=== PATIENT | male | born 1975 | race Caucasian/White ===

== ENCOUNTER 2017-06-15 11:38 | Emergency (ER) | payer MEDICAID ==
[2017-06-15 11:52] VITALS: BP 119/78
[2017-06-15] MEDS ORDERED: LIDOCAINE 1% 2 ML VIAL ONE (12:51)
[2017-06-15] MEDS ORDERED: TETANUS/DIPHTHERIA/PERTUSSIS 0.5 ML SYRINGE IM ONE (12:54)
--- NOTE | 2017-06-15 12:57 | ED Physician Documentation ---
PD HPI UPPER EXT INJURY - Stated complaint Stated Complaint: L POINTER LAC - Chief complaint Chief Complaint: Ext Problem - History obtained from History obtained from: Patient, Family - History of Present Illness Location: Left, Finger (index) Type of injury: Laceration Where injury occurred: Home Timing - onset: Today Timing - duration: Minutes Timing - details: Abrupt onset, Still present Improved by: Rest, Immobilization Worsened by: Moving Associated symptoms: No: Weakness, Numbness, Tingling, Swelling Similar symptoms before: Diagnosis (laceration) Recently seen: Not recently seen - Additonal information Additional information: 42-year-old male cutting food with a knife sliced his left index finger. He does not recall when the last tetanus booster he had was. Review of Systems Constitutional: denies: Fever Respiratory: denies: Cough GI: denies: Vomiting Skin: reports: Laceration (s) Musculoskeletal: reports: Extremity pain. denies: Neck pain, Back pain PD PAST MEDICAL HISTORY - Past Medical History Past Medical History: Yes Cardiovascular: None Respiratory: None Neuro: None Endocrine/Autoimmune: None GI: None : None HEENT: None Psych: None Musculoskeletal: None Derm: None - Past Surgical History Past Surgical History: No - Present Medications Home Medications: Ambulatory Orders Medication Instructions Recorded Confirmed Guanfacine HCl 1 tab PO DAILY 06/15/17 06/15/17 Sertraline [Zoloft] 1 tab PO DAILY 06/15/17 06/15/17 Ziprasidone [Geodon] 1 cap PO DAILY 06/15/17 06/15/17 traZODone [Desyrel] 1 tab PO DAILY PM 06/15/17 06/15/17 - Allergies Allergies/Adverse Reactions: Allergies Allergy/AdvReac Type Severity Reaction Status Date / Time No Known Drug Allergies Allergy Verified 06/15/17 11:52 - Social History Does the pt smoke?: Yes Smoking Status: Current some day smoker Does the pt drink ETOH?: No Does the pt have substance abuse?: No Substance Use and Type: Marijuana - Immunizations Immunizations are current?: Yes - POLST Patient has POLST: No PD ED PE NORMAL - Vitals Vital signs reviewed: Yes (normal ) - General General: Alert and oriented X 3, No acute distress, Well developed/nourished - HEENT HEENT: Atraumatic, PERRL, EOMI - Respiratory Respiratory: No respiratory distress - Derm Derm: Normal color, Warm and dry, No rash - Extremities Extremities: No deformity, No edema, Other (There is a 2cm laceration to the left index finger palmar surface over the DIP joint without involvment of deeper structures. ) - Neuro Neuro: No motor deficit, No sensory deficit Eye Opening: Spontaneous Motor: Obeys Commands Verbal: Oriented GCS Score: 15 - Psych Psych: Normal mood, Normal affect Results - Vitals Vitals: Vital Signs - 24 hr 06/15/17 11:48 Temperature 37.2 C Heart Rate 88 Respiratory 14 Rate Blood Pressure 119/78 O2 Saturation 97 Oxygen O2 Source Room air Procedures - Laceration (location) left index Length in cm: 2 Wound type: Linear, Flap, Clean Neurovascular status: Sensory intact, Motor intact, Vascular intact Tendon involvement: Tendon intact Anesthesia: Lidocaine 1% Wound Preparation: Hibiclens, Irrigated copiously NS, Wound explored, To the base Skin layer closure: Nylon, Interrupted, Size #-0 - enter number (4-0), Sutures - enter # (5) Other: Patient tolerated well, No complications, Neurovascular intact, Dressing applied, Tetanus booster given PD MEDICAL DECISION MAKING - ED course Complexity details: considered differential, d/w patient, d/w family ED course: 42 y/o male with finger laceration is sutured. Departure - Departure Disposition: 01 Home, Self Care Clinical Impression: Laceration of index finger Qualifiers: Encounter type: initial encounter Damage to nail status: without damage Foreign body presence: without foreign body Laterality: left Qualified Code(s): S61.211A - Laceration without foreign body of left index finger without damage to nail, initial encounter Instructions: ED Laceration Hand Follow-Up: [facility] [Provider Group] Comments: Sutures will need to be removed in 7-10 days.
== END 2017-06-15 13:13 | disposition home or self-care (01) ==
LOC: ED 11:38
DX: S61.211A Laceration without foreign body of left index finger without damage to nail, initial encounter (principal); W26.0XXA Contact with knife, initial encounter; Y93.G1 Activity, food preparation and clean up; Y92.000 Kitchen of unspecified non-institutional (private) residence as the place of occurrence of the external cause; F17.200 Nicotine dependence, unspecified, uncomplicated; Z23 Encounter for immunization
CPT/HCPCS: 12001; 90471; 99283

== ENCOUNTER 2018-03-04 20:20 | Outpatient (CLI) | payer MEDICAID | END 2018-03-04 20:21 | disposition critical access hospital (66) | LOC: EMS 20:20 | PROVIDERS: ATTEND Surgery | DX: S09.90XA Unspecified injury of head, initial encounter (principal); M54.5 Low back pain; M79.605 Pain in left leg; M79.604 Pain in right leg; V48.6XXA Car passenger injured in noncollision transport accident in traffic accident, initial encounter; Y92.410 Unspecified street and highway as the place of occurrence of the external cause | CPT/HCPCS: A0425; A0427; A0999 ==

== ENCOUNTER 2018-03-04 20:48 | Emergency (ER) | payer MEDICAID ==
[2018-03-04] MEDS ORDERED: MORPHINE 10 MG/ML VIAL IVP STA (21:00)
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
[2018-03-04] MEDS ORDERED: HYDROmorphone 1 MG/ML CARPUJECT IVP STA ×3 (21:10→22:54)
[2018-03-04 21:16] LABS: BASOPHILS % (AUTO) 0.3 %; EOSINOPHILS % (AUTO) 1.2 %; HGB - HEMOGLOBIN 15.8 g/dL (14.0-18.0); LYMPHOCYTES % (AUTO) 18.9 %; MEAN CORPUSCULAR HEMOGLOBIN 29.3 pg (27.0-31.0); MEAN CORPUSCULAR HGB CONC 34.2 g/dL (32.0-36.0); MEAN CORPUSCULAR VOLUME 85.7 fL (80.0-94.0); MONOCYTES % (AUTO) 5.9 %; NEUTROPHILS % (AUTO) 73.7 %; PLT - PLATELET COUNT 378 10^3/uL (130-450); RED BLOOD COUNT 5.38 10^6/uL (4.70-6.10); WHITE BLOOD COUNT 22.1 x10^3/uL (4.8-10.8)
[2018-03-04 21:17] LABS: ABNORMAL LYMPHS % (MANUAL) 0 %
[2018-03-04 21:22] LABS: BILIRUBIN,URINE NEGATIVE (NEGATIVE); GLUCOSE, URINE (UA) NEGATIVE (NEGATIVE); KETONES,URINE (UA) NEGATIVE (NEGATIVE); LEUKOCYTE ESTERASE, URINE NEGATIVE (NEGATIVE); NITRITE,URINE NEGATIVE (NEGATIVE); OCCULT BLOOD,URINE SMALL (NEGATIVE); PH,URINE 5.5 PH (5.0-7.5); PROTEIN,URINE NEGATIVE (NEGATIVE); UROBILINOGEN,URINE 0.2 (NORMAL) E.U./dL (NORMAL)
[2018-03-04 21:24] LABS: CLARITY,URINE CLEAR (CLEAR)
[2018-03-04 21:25] LABS: ALBUMIN 4.6 g/dL (3.2-5.5); ALBUMIN/GLOBULIN RATIO 1.7 (1.0-2.2); ALKALINE PHOSPHATASE 84 IU/L (42-121); ALT ALANINE AMINOTRANSFERASE 55 IU/L (10-60); AST ASPARTATE AMINOTRANSFERASE 50 IU/L (10-42); BILIRUBIN,TOTAL 0.5 mg/dL (0.2-1.0); BUN - BLOOD UREA NITROGEN 17 mg/dL (6-20); CALCIUM 8.7 mg/dL (8.5-10.3); CARBON DIOXIDE - CO2 26 mmol/L (21-32); CHLORIDE 102 mmol/L (101-111); CREATININE 0.9 mg/dL (0.6-1.2); GFR - MDRD 93 (>89); GLUCOSE 152 mg/dL (70-100); LIPASE 68 U/L (22-51); SODIUM 140 mmol/L (135-145); TOTAL PROTEIN 7.3 g/dL (6.7-8.2)
[2018-03-04 21:31] LABS: BAND NEUTROPHILS % (MANUAL) 2 %; DIFFERENTIAL COMMENT MANUAL DIFFERENTIAL; LYMPHOCYTES # (MANUAL) 4.9 10^3/uL (1.5-3.5); LYMPHOCYTES % (MANUAL) 22 %; MONOCYTES # (MANUAL) 0.9 10^3/uL (0.0-1.0); NEUTROPHILS # (MANUAL) 16.4 10^3/uL (1.5-6.6); NEUTROPHILS % (MANUAL) 72 %; PLATELET ESTIMATE, MANUAL NORMAL (130-450,000) (NORMAL); PLATELET MORPHOLOGY NORMAL APPEARANCE (NORMAL); RBC MORPHOLOGY (MULTIPLE) NORMAL APPEARANCE (NORMAL)
[2018-03-04 21:34] LABS: RBC,URINE 0-5 /HPF (0-5); SQUAMOUS EPITHELIAL CELL,UR NONE SEEN (<= Few)
[2018-03-04 21:35] LABS: AMORPHOUS SEDIMENT,UR Moderate /LPF; BACTERIA,URINE None Seen /HPF (None Seen)
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
[2018-03-04] MEDS ORDERED: diazePAM 5 MG TABLET PO STA (22:53)
[2018-03-05] MEDS ORDERED: HYDROmorphone 1 MG/ML CARPUJECT IVP STA ×3 (00:26→03:13)
[2018-03-05] MEDS ORDERED: diazePAM 5 MG TABLET PO STA (00:27)
[2018-03-05] MEDS ORDERED: IOVERSOL 320 100 ML VIAL IVP ONE ×2 (01:00→02:24)
[2018-03-05] MEDS ORDERED: LIDOCAINE 1% 2 ML VIAL SUBQ STA (01:31)
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
[2018-03-05] MEDS ORDERED: TRANEXAMIC ACID 1,000 MG in SODIUM CHLORIDE 0.9% 100ML 100 ML IV STA (02:27)
[2018-03-05] MEDS ORDERED: TRANEXAMIC ACID 1,000 MG in SODIUM CHLORIDE 0.9% 100ML 100 ML IV ONE (02:30)
[2018-03-05] MEDS ORDERED: HYDROmorphone 1 MG/ML CARPUJECT ONE (02:33)
[2018-03-05 02:35] LABS: HGB - HEMOGLOBIN 15.3 g/dL (14.0-18.0)
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
[2018-03-05] MEDS: IOVERSOL 320 100 ML VIAL IVP ONE (03:22)
[2018-03-05 03:36] VITALS: BP 146/100
== END 2018-03-05 03:40 | disposition short-term general hospital (02) ==
LOC: EDUNIT# → ED 20:48
DX: S22.20XA Unspecified fracture of sternum, initial encounter for closed fracture (principal); S22.080A Wedge compression fracture of T11-T12 vertebra, initial encounter for closed fracture; S27.892A Contusion of other specified intrathoracic organs, initial encounter; S01.01XA Laceration without foreign body of scalp, initial encounter; V89.2XXA Person injured in unspecified motor-vehicle accident, traffic, initial encounter; R00.0 Tachycardia, unspecified
CPT/HCPCS: 36415; 51702; 70450; 71045; 71275; 72125; 72170; 74177; 80053; 80320; 81001; 81003; 83690; 85014; 85018; 85025; 87086; 96372; 96374; 96375; 96376; 99284; 99285